=== PATIENT | male | born 1955 | race Caucasian/White ===

== ENCOUNTER 2020-03-13 05:26 | Day surgery (SDC) | payer BC ==
[2020-03-08 10:31] LABS: APPEARANCE,URINE CLEAR; BILIRUBIN,URINE NEGATIVE (NEGATIVE); COLOR,URINE STRAW; GLUCOSE, URINE NEGATIVE (NEGATIVE); KETONES,URINE NEGATIVE (NEGATIVE); LEUKOCYTE ESTERASE,URINE NEGATIVE (NEGATIVE); NITRITE,URINE NEGATIVE (NEGATIVE); PROTEIN,URINE NEGATIVE (NEGATIVE); URINE SPECIFIC GRAVITY 1.008; UROBILINOGEN,URINE NEGATIVE mg/dL (<2.0)
--- NOTE | 2020-03-08 11:09 | RADIOLOGY REPORT (SQ) ---
EXAM DESCRIPTION: CHEST PA/LATERAL IMAGES COMPLETED DATE/TIME: 03/08/2020 10:07 am REASON FOR STUDY: PRE-OP COMPARISON: None. EXAM PARAMETERS: NUMBER OF VIEWS: two views TECHNIQUE: Digital Frontal and Lateral radiographic views of the chest acquired. RADIATION DOSE: NA LIMITATIONS: none FINDINGS: LUNGS AND PLEURA: No consolidation or effusions. There is calcified granuloma in the left base. No pneumothorax. MEDIASTINUM AND HILAR STRUCTURES: Calcified left hilar nodes. HEART AND VASCULAR STRUCTURES: Heart normal size. No evidence for failure. BONES: No acute findings. HARDWARE: None in the chest. OTHER: No other significant finding. IMPRESSION: NO SIGNIFICANT RADIOGRAPHIC FINDING IN THE CHEST. TECHNICAL DOCUMENTATION: JOB ID: [id number] 2010 [employer]- All Rights Reserved Reading location - IP/workstation name: [email or web address]
[~2020-03-13 05:26] MED LIST: ACETAMINOPHEN 325 MG TABLET ONE; ACETAMINOPHEN 325 MG TABLET PO PRN; CEFAZOLIN 2 GM/D5W RTU 2 GM/50 ML RTUPB IV ONE; CELECOXIB 200 MG CAPSULE ONE; CELECOXIB 200 MG CAPSULE PO PRN; GABAPENTIN 100 MG CAPSULE ONE; GABAPENTIN 100 MG CAPSULE PO PRN; LACTATED RINGERS 1000 ML IV PRN; ONDANSETRON HCL INJ/PF 4 MG/2 ML SDV IV PRN; ONDANSETRON HCL INJ/PF 4 MG/2 ML SDV ONE; OXYCODONE HCL SR 10 MG TABLET PO ONE; OXYCODONE HCL SR 10 MG TABLET PO PRN; SCOPOLAMINE HYDROBROMIDE 1.5 MG PATCH.TD72 ONE; SCOPOLAMINE HYDROBROMIDE 1.5 MG PATCH.TD72 TD PRN; TRAMADOL HCL 50 MG TABLET ONE; TRAMADOL HCL 50 MG TABLET PO PRN; TRANEXAMIC ACID INJ/PF 1,000 MG/10 ML SDV IV PRN; VANCOMYCIN HCL 1,000 MG in DEXTROSE 5%-WATER 250 ML IV PRN
[2020-03-13] MEDS ORDERED: ONDANSETRON HCL INJ/PF 4 MG/2 ML SDV ONE (07:08)
[2020-03-13] MEDS ORDERED: TRANEXAMIC ACID INJ/PF 1,000 MG/10 ML SDV ONE (07:08)
[2020-03-13] MEDS ORDERED: MIDAZOLAM 2 MG/2 ML INJ ONE (07:08)
[2020-03-13] MEDS ORDERED: PROPOFOL INJ 200 MG/20 ML VIAL IV ONE (07:09)
[2020-03-13] MEDS ORDERED: VANCOMYCIN HCL INJ 1000 MG VIAL ONE (07:14)
[2020-03-13] MEDS ORDERED: KETOROLAC TROMETHAMINE INJ/PF 30 MG/1 ML SDV ONE (07:14)
[2020-03-13] MEDS ORDERED: LIDOCAINE 1% INJ-PF (10 MG/ML) 30 ML SDV ONE (07:14)
[2020-03-13] MEDS ORDERED: BUPIVACAINE HCL 0.25 % INJ/PF (2.5 MG/1 ML) 30 ML VIAL ONE (07:14)
[2020-03-13] MEDS ORDERED: FENTANYL CITRATE INJ/PF 100 MCG/2 ML AMPUL IV PRN ×3 (08:01)
[2020-03-13] MEDS ORDERED: MORPHINE SULFATE 10 MG/ML INJ IV PRN ×2 (08:01→10:01)
[2020-03-13] MEDS ORDERED: PROMETHAZINE HCL INJ 25 MG/1 ML VIAL IV PRN (08:01)
[2020-03-13] MEDS ORDERED: DIPHENHYDRAMINE HCL 50 MG/ML VIAL IV PRN (08:01)
[2020-03-13] MEDS ORDERED: MEPERIDINE HCL/PF INJ 25 MG/1 ML DISP.SYRIN IV PRN (08:01)
--- NOTE | 2020-03-13 09:46 | Operative Report ---
Operative Report DATE OF SURGERY: 03/13/20 PREOPERATIVE DIAGNOSIS: Left posttraumatic hip osteoarthritis POSTOPERATIVE DIAGNOSIS: Left posttraumatic hip osteoarthritis OPERATION: Left total hip arthroplasty, removal of hardware. SURGEON: WILLY WEN JR ANESTHESIA: Spinal COMPLICATIONS: None ESTIMATED BLOOD LOSS: 150 PROCEDURE: Implants: Herrera Accolade 2 size 5 femoral stem with standard offset, a Trident size 52 cup, and a standard liner, a 0 neck length 36 mm ceramic head BRIEF HISTORY: 65 year old male with severe posttraumatic degenerative arthritis of left hip, which has failed conservative treatment and has elected for a total hip arthroplasty. Risks include but are not limited to bleeding, infection, anesthesia, , injury to nerve or vessel, pain, scar, leg length inequality, dislocation, future surgery, and blood clots. Patient read through the pre-op counseling form and signed and consented for surgery on their left hip. OPERATIVE PROCEDURE: Patient was brought to the operating room on and underwent spinal anesthesia. 2 grams of Ancef and 1 g of vancomycin was given. After proper anesthesia was obtained, patient was positioned, padded, prepped, and draped in the usual sterile fashion on the operating room table. Appropriate time out was performed. An anterior approach to the hip was undertaken with meticulous hemostasis through the deep interval. A capsulectomy was performed followed by exposure of the femoral neck. The femoral neck was cut in line with the femoral broach and the femoral head was removed. The acetabulum was then exposed with three retractors in an atraumatic fashion. Soft tissue and osteophytes were removed. Medialization reaming was performed followed by anatomic reaming up to accept a 52 mm acetabulum. During reaming we encountered a screw. This was able to be removed from inside the acetabulum by gently manipulating it with an osteotome and a [place]. Wound was irrigated with dilute betadyne solution and the 52 mm acetabulum was impacted into correct position and stability checked by manipulating the impaction handle which rocked the pelvis. We drilled and measured a 40 mm acetabular screw which was then inserted in the superior portion of the cup with excellent purchase. A standard liner was impacted into the shell with good stability. Potential impinging osteophytes were removed. Attention was then directed toward the femur, which was exposed with two retractors in an atraumatic fashion. A bone hook was placed to carefully perform releases along the superior capsule until the femur was safely delivered through the wound. A corrugated box machine operator was utilized followed by lateralization rasping and then broaching up to accept a 5 femur. With a standard offset neck and a 0 neck length head, stability was good in flexion and extension with equal leg lengths. The real standard offset femur was impacted into a copiously irrigated femoral canal. A 36 mm ceramic head was impacted on a clean dry femoral taper. The hip was irrigated and reduced, further irrigation with antibiotic solution, betadine solution, then antibiotic solution. Bleeders were coagulated with bovie cautery. The fascia was then closed with number 2 Stratofix; the subcutaneous tissue closed with interrupted inverted 2-0 monocryl then running 3-0 monocryl subcuticular. A silver dressing was then applied. All needle sponge and instrument counts were correct. Patient was awakened from sedation anesthesia and taken to recovery room in good condition. Thank you, Willy Wen, DO
[2020-03-13] MEDS ORDERED: OXYCODONE HCL IR 5 MG TABLET PO PRN ×2 (09:59→10:00)
[2020-03-13] MEDS ORDERED: TRAMADOL HCL 50 MG TABLET PO PRN (10:01)
[2020-03-13] MEDS ORDERED: PANTOPRAZOLE SODIUM 20 MG TABLET.DR PO PRN (10:07)
[2020-03-13] MEDS ORDERED: DIPHENHYDRAMINE HCL 25 MG CAPSULE PO PRN (10:08)
[2020-03-13] MEDS ORDERED: DOCUSATE SODIUM 100 MG CAPSULE PO PRN (10:10)
[2020-03-13] MEDS ORDERED: NORMAL SALINE 1000 ML 1,000 ML IV PRN (10:11)
[2020-03-13] MEDS ORDERED: ONDANSETRON 4 MG TAB.RAPDIS PO PRN (10:14)
--- NOTE | 2020-03-13 11:35 | RADIOLOGY REPORT (SQ) ---
EXAM DESCRIPTION: HIP LEFT AP/LATERAL IMAGES COMPLETED DATE/TIME: 03/13/2020 11:14 am REASON FOR STUDY: s/p left total hip M16.12 UNILATERAL PRIMARY OSTEOARTHRITIS, LEFT HIP COMPARISON: 01/30/2020. NUMBER OF VIEWS: Two view(s). TECHNIQUE: Digital radiographic images of the left hip post-procedure. LIMITATIONS: None. FINDINGS: BONES: No worrisome or unexpected findings post-procedure. DEVICE: Total hip replacement. Components of the device in appropriate location. Previous hardware i n the acetabulum. SOFT TISSUES: No worrisome findings. Expected postoperative soft tissue changes. IMPRESSION: SATISFACTORY POSTOPERATIVE LEFT HIP. TECHNICAL DOCUMENTATION: JOB ID: [id number] 2010 [employer]- All Rights Reserved Reading location - IP/workstation name: [email or web address]
--- NOTE | 2020-03-13 12:49 | Discharge Summary ---
Discharge Summary (SDC) - Discharge Final Diagnosis: Left posttraumatic hip osteoarthritis Date of Surgery: 03/13/20 Discharge Date: 03/13/20 Condition: Stable Treatment or Instructions: Full details of postoperative instructions have been provided to the patient in the clinic. Additionally they should maintain their bandage in place for 5 to 7 days, and then changed to a dry dressing. They can take showers with this occlusive dressing but any further dressing should also be occlusive. No showers with the wound unprotected until cleared by me in the clinic. If the bandage falls off early or become saturated they can change as needed to another occlusive dressing. Referrals: DEMETRIS ZHOU MD [Primary Care Provider] - Discharge Diet: As Tolerated Respiratory Treatments at Home: Deep Breathing/Coughing Discharge Activity: Activity As Tolerated, No Driving, Keep Legs Elevated, No Lifting/Push/Pulling, Slowly Increase Activity, No tub bath, Walk Frequently Home Care Assistance: Home Health Activities Provided by Home Health Agency: Physical Therapy Adaptive Devices on Discharge: Rolling Walker, Bedside Commode Report the Following to Your Physician Immediately: Shortness of Breath, Fever over 101 Degrees, Unusual Bleeding, Drainage-Yellow
[2020-03-13] MEDS ORDERED: ACETAMINOPHEN 325 MG TABLET PO SCH (14:00)
[2020-03-13] MEDS ORDERED: CEFAZOLIN 2 GM/D5W RTU 2 GM/50 ML RTUPB IV SCH (14:00)
[2020-03-13] MEDS ORDERED: KETOROLAC TROMETHAMINE INJ/PF 30 MG/1 ML SDV IV SCH (14:00)
[2020-03-13] MEDS ORDERED: PHENYLEPHRINE HCL INJ/PF 10 MG/1 ML SDV ONE (14:43)
[2020-03-13] MEDS ORDERED: EPINEPHRINE INJ/PF 1 MG/1 ML AMPULE ONE (14:43)
--- NOTE | 2020-03-13 16:34 | RADIOLOGY REPORT (SQ) ---
EXAM DESCRIPTION: HIP IN OPERATING RM; NO CHG FLUORO IMAGES COMPLETED DATE/TIME: 03/13/2020 2:45 pm REASON FOR STUDY: LEFT HIP ARTHROPLASTY ASSISTED WITH FLUORO IN OR M16.12 UNILATERAL PRIMARY OSTEOA RTHRITIS, LEFT HIP COMPARISON: 01/30/2020. FLUOROSCOPY TIME: Less than 0.1 minutes. 2 images saved to PACS. TECHNIQUE: Intra-operative images acquired during surgical procedure to evaluate progress. NUMBER OF IMAGES: 2 images. LIMITATIONS: None. FINDINGS: Images of the hip acquired during prosthesis placement. IMPRESSION: IMAGE(S) OBTAINED DURING PROCEDURE. COMMENT: Quality ID 145: Final reports for procedures using fluoroscopy that document radiation exp osure indices, or exposure time and number of fluorographic images (if radiation exposure indices are not available) Please consult full operative report of the attending physician for description of the procedure. TECHNICAL DOCUMENTATION: JOB ID: [id number] 2010 [email or web address]- All Rights Reserved Reading location - IP/workstation name: [email or web address]
--- NOTE | 2020-03-13 16:34 | RADIOLOGY REPORT (SQ) ---
EXAM DESCRIPTION: HIP IN OPERATING RM; NO CHG FLUORO IMAGES COMPLETED DATE/TIME: 03/13/2020 2:45 pm REASON FOR STUDY: LEFT HIP ARTHROPLASTY ASSISTED WITH FLUORO IN OR M16.12 UNILATERAL PRIMARY OSTEOA RTHRITIS, LEFT HIP COMPARISON: 01/30/2020. FLUOROSCOPY TIME: Less than 0.1 minutes. 2 images saved to PACS. TECHNIQUE: Intra-operative images acquired during surgical procedure to evaluate progress. NUMBER OF IMAGES: 2 images. LIMITATIONS: None. FINDINGS: Images of the hip acquired during prosthesis placement. IMPRESSION: IMAGE(S) OBTAINED DURING PROCEDURE. COMMENT: Quality ID [id number]: Final reports for procedures using fluoroscopy that document radiation exp osure indices, or exposure time and number of fluorographic images (if radiation exposure indices are not available) Please consult full operative report of the attending physician for description of the procedure. TECHNICAL DOCUMENTATION: JOB ID: [id number] 2010 [employer]- All Rights Reserved Reading location - IP/workstation name: [email or web address]
[2020-03-13 16:48] VITALS: BP 125/78
[2020-03-13] MEDS ORDERED: GABAPENTIN 100 MG CAPSULE PO SCH (18:00)
[2020-03-13] MEDS ORDERED: ZOLPIDEM TARTRATE 5 MG TABLET PO PRN (22:00)
[2020-03-14] MEDS ORDERED: ASPIRIN 325 MG TABLET PO SCH (10:00)
[2020-03-14] MEDS ORDERED: POLYETHYLENE GLYCOL 3350 POWDER 17 GM/1 PACKET PO SCH (10:00)
[2020-03-14] MEDS ORDERED: CELECOXIB 200 MG CAPSULE PO SCH (10:00)
[2020-03-14] MEDS ORDERED: CELECOXIB 100 MG CAPSULE PO SCH (10:00)
== END 2020-03-13 16:30 | disposition home health service (06) ==
LOC: OROUT 05:26 → 4W 13:16 → OROUT 16:30
PROVIDERS: ATTEND Orthopaedic Surgery
DX: M16.52 Unilateral post-traumatic osteoarthritis, left hip (principal); Z03.818 Encounter for observation for suspected exposure to other biological agents ruled out
CPT/HCPCS: 86900; 86901; 36415; 86850; 87635; 81001; 71046; 73502; 73501; 97110; 97161; 97530; 97535; 97165; 27130; 20680; J2250; J0171; J3490 ×2; J1885; J2370; J2405; J7060; J2704; J3370; J0690; C9803